=== PATIENT | female | born 1985 | race Caucasian/White ===

== ENCOUNTER 2020-11-27 02:24 | Emergency (ER) | payer SELFPAY ==
[~2020-11-27] VITALS: Ht 165.1 cm; Wt 70.0 kg
[2020-11-27 02:26] VITALS: BP 155/88
== END 2020-11-27 04:17 | disposition home or self-care (01) ==
LOC: EDBD 02:24 → ER 02:39
DX: F10.129 Alcohol abuse with intoxication, unspecified (principal); Y90.9 Presence of alcohol in blood, level not specified
CPT/HCPCS: 99283